=== PATIENT | female | born 1975 | race Caucasian/White ===

== ENCOUNTER 2020-10-12 23:40 | Emergency (ER) | payer MEDICARE, OTHER ==
[2020-10-13] MEDS ORDERED: LODINE CAP 300300 MG PO (01:45)
== END 2020-10-13 02:15 | disposition home or self-care (01) ==
LOC: ER1 23:40
DX: M25.531 Pain in right wrist (principal); Z88.5 Allergy status to narcotic agent; Z90.49 Acquired absence of other specified parts of digestive tract
CPT/HCPCS: 73110; 73130; 99283